=== PATIENT | female | born 1975 | race Caucasian/White ===

== ENCOUNTER 2024-03-15 12:25 | Emergency (ER) | payer OTHER, SELFPAY ==
[2024-03-15 12:30] VITALS: BP 129/79; PULSE 67; RESP 16; TEMP 36.6; O2SAT 99; BMI 25.7
[2024-03-15 13:49] LABS: Basophils % 0.7 %; Eosinophils % 0.5 %; Hematocrit 40.2 % (36-47); Lymphocytes # 1.8 10^3/uL (0.8-4.8); Mean Corpuscular HGB Conc 34.3 g/dL (30-55); Mean Corpuscular Hemoglobin 31.6 pg (27-33); Mean Platelet Volume 10.7 fL (7.4-10.4); Monocytes # 0.2 10^3/uL (0.2-0.9); Neutrophils # 3.88 10^3/uL (1.8-7.7); Neutrophils % 64.6 %; Nucleated Red Blood Cells % 0 %; Platelet Count 188 10^3/cmm (157-399); Red Blood Count 4.37 10^6/uL (3.85-5.65); Red Cell Distribution Width 13.2 % (12.1-15.1)
[2024-03-15 14:13] LABS: HCG, Serum Qual Negative (Negative)
[2024-03-15 14:16] LABS: Alanine Aminotransferase 13 U/L (0-33); Albumin Level 4.4 g/dL (3.5-5.2); Alkaline Phosphatase 80 U/L (35-105); Anion Gap 15.2 (5-19); Aspartate Amino Transferase 21 U/L (0-32); Blood Urea Nitrogen 7 mg/dL (6-20); Calcium 9.7 mg/dL (8.5-10.5); Carbon Dioxide 24 mmol/L (22-29); Chloride 108 mmol/L (98-107); Creatinine Clr Calc Pharmacy 65.2053; Glomerular Filtration Rate 59.2 mL/min (90-130); Glucose 108 mg/dL (65-115); Lipase 24 U/L (13-60); Osmolality Calculated 295 mOsm/kg (285-295); Potassium 4.2 mmol/L (3.5-5.1); Sodium 143 mmol/L (136-145); Total Bilirubin 0.3 mg/dL (0.15-1.2); Total Protein 7.4 g/dL (6.6-8.7)
--- NOTE | 2024-03-15 16:15 | W.ED.ABDPA2 ---
HPI - Abdominal Pain General: Chief Complaint: Abdominal Pain Stated Complaint: urinating issues, unable to have bowel movement Time Seen by Provider: 03/15/24 16:09 History of Present Illness: 49-year-old female who says she has a history of intussusceptions and that every time she plans to have surgery it resolves itself. She says she has been having pain in her belly and every time she eats she gets very bloated. She says that she also is not passing gas but rather area is going back inside her from her rectum. Some upper abdominal pain. She also says she has been having trouble urinating. In she cannot have a bowel movement. No fevers. No chest pain. No shortness of breath. No altered mental status. Review of Systems Narrative: Constitutional symptoms: Negative except as documented in HPI. Skin symptoms: Negative except as documented in HPI. Eye symptoms: Negative except as documented in HPI. ENMT symptoms: Negative except as documented in HPI. Respiratory symptoms: Negative except as documented in HPI. Cardiovascular symptoms: Negative except as documented in HPI. Gastrointestinal symptoms: Negative except as documented in HPI. Genitourinary symptoms: Negative except as documented in HPI. Musculoskeletal symptoms: Negative except as documented in HPI. Neurologic symptoms: Negative except as documented in HPI. Psychiatric symptoms: Negative except as documented in HPI. Endocrine symptoms: Negative except as documented in HPI. Physical Exam Narrative: EXAM NARRATIVE: General: Alert, no acute distress. Skin: Warm, dry. Head: Normocephalic, atraumatic. Neck: Supple, trachea midline. Eye: Extraocular movements are intact. Ears, nose, mouth and throat: mucosa moist. Cardiovascular: Regular, Normal peripheral perfusion. Respiratory: Lungs are clear to auscultation, respirations are non-labored, breath sounds are equal, Symmetrical chest wall expansion. Gastrointestinal: Soft, complains of diffuse abdominal pain, Non distended, Normal bowel sounds. Musculoskeletal: Normal ROM, no deformity. Neurological: Alert and oriented, No focal neurological deficit observed. Psychiatric: Cooperative, appropriate mood & affect. Course Vital Signs: Vital signs: Vital Signs Temperature 97.9 F 03/15/24 12:30 Pulse Rate 67 03/15/24 12:30 Respiratory Rate 16 03/15/24 12:30 Blood Pressure 129/79 03/15/24 12:30 Pulse Oximetry 99 03/15/24 12:30 Oxygen Delivery Me thod Room Air 03/15/24 12:30 MDM - Abdominal Pain Medical Decision Making Medical decision making: Differential diagnosis including but not limited to and based on the above HPI, review of systems and physical exam: Patient reports this might be nociception. CT scan was ordered. Rule out bowel obstruction or constipation. Another pathology such as diverticulitis. Also urine was ordered. Orders placed to evaluate differential diagnosis based on the above differential, HPI and physical exam Lab Review: Laboratory results were reviewed and interpreted by myself the emergency room physician. White count is 6. Hemoglobin 13.8. BUN and creatinine are 7 and 1.0. Urinalysis is negative. CT of the abdomen pelvis with contrast: Listed below is the radiology report. 1. Prominent fluid in the small bowel without dilation may reflect an enteritis. 2. Surgical suture line seen in the region of the distal sigmoid colon/rectum without surrounding inflammatory changes. A rounded 2.7 cm fluid containing area is seen in the area of the surgical suture line in the pelvis is seen which may reflect fluid in the bowel in this area, a CT with enteric contrast could further evaluate this. 3. Cholecystectomy. 4. Left kidney chronic atrophy. 5. Right ovary 6.1 cm cyst with a somewhat thickened internal septation, consider correlation with ultrasound. 6. Small umbilical hernia containing omentum without bowel. I reviewed the patient's medical record. Reexamination: Patient has no abdominal distention and no abdominal pain at this time. She says that if she does eat something she will become all distended. I recommend that she follow with her PCP and a GI doctor as soon as possible. Assessment and plan: -Caroline Friedman in the emergency room. - Discharged home - Discussed findings and plan with patient. Answered any questions. - All laboratory values were reviewed and interpreted personally by myself, the ER physician - All imaging was reviewed and interpreted personally by myself, the ER physician. - Evaluation and treatment of this problem were appropriate in the emergency setting Lab Data 03/15/24 13:39 03/15/24 13:39 Labs/Radiology: Radiology Impressions Abdomen/Pelvis CT 03/15/24 16:16 IMPRESSION: 1. Prominent fluid in the small bowel without dilation may reflect an enteritis. 2. Surgical suture line seen in the region of the distal sigmoid colon/rectum without surrounding inflammatory changes. A rounded 2.7 cm fluid containing area is seen in the area of the surgical suture line in the pelvis is seen which may reflect fluid in the bowel in this area, a CT with enteric contrast could further evaluate this. 3. Cholecystectomy. 4. Left kidney chronic atrophy. 5. Right ovary 6.1 cm cyst with a somewhat thickened internal septation, consider correlation with ultrasound. 6. Small umbilical hernia containing omentum without bowel. Laboratory Results WBC 6.00 10^3/uL (3.29-11.43) 03/15/24 13:39 RBC 4.37 10^6/uL (3.85-5.65) 03/15/24 13:39 Hgb 13.80 g/dL (11.27-16.99) 03/15/24 13:39 Hct 40.2 % (36-47) 03/15/24 13:39 MCV 92.0 fl (85-98) 03/15/24 13:39 MCH 31.6 pg (27-33) 03/15/24 13:39 MCHC 34.3 g/dL (30-55) 03/15/24 13:39 RDW 13.2 % (12.1-15.1) 03/15/24 13:39 Plt Count 188 10^3/cmm (157-399) 03/15/24 13:39 MPV 10.7 fL (7.4-10.4) H 03/15/24 13:39 Neut % (Auto) 64.6 % 03/15/24 13:39 Lymph % (Auto) 30.0 % 03/15/24 13:39 [place] % (Auto) 4.0 % 03/15/24 13:39 Eos % (Auto) 0.5 % 03/15/24 13:39 Baso % (Auto) 0.7 % 03/15/24 13:39 Neut # (Auto) 3.88 10^3/uL (1.8-7.7) 03/15/24 13:39 Lymph # (Auto) 1.8 10^3/uL (0.8-4.8) 03/15/24 13:39 [place] # (Auto) 0.2 10^3/uL (0.2-0.9) 03/15/24 13:39 Eos # (Auto) 0.0 10^3/uL (0.0-0.8) 03/15/24 13:39 Baso # (Auto) 0.0 10^3/uL (0.0-0.1) 03/15/24 13:39 Nucleated RBC % (auto) 0 % 03/15/24 13:39 Nucleated RBCs # 0.0 /100WBC 03/15/24 13:39 Sodium 143 mmol/L (136-145) 03/15/24 13:39 Potassium 4.2 mmol/L (3.5-5.1) 03/15/24 13:39 Chloride 108 mmol/L (98-107) H 03/15/24 13:39 Carbon Dioxide 24 mmol/L (22-29) 03/15/24 13:39 Anion Gap 15.2 (5-19) 03/15/24 13:39 BUN 7 mg/dL (6-20) 03/15/24 13:39 Creatinine 1.0 mg/dL (0.5-0.9) H 03/15/24 13:39 GFR Calculation 59.2 mL/min (90-130) L 03/15/24 13:39 Glucose 108 mg/dL (65-115) 03/15/24 13:39 Calculated Osmolality 295 mOsm/kg (285-295) 03/15/24 13:39 Calcium 9.7 mg/dL (8.5-10.5) 03/15/24 13:39 Total Bilirubin 0.3 mg/dL (0.15-1.2) 03/15/24 13:39 AST 21 U/L (0-32) 03/15/24 13:39 ALT 13 U/L (0-33) 03/15/24 13:39 Alkaline Phosphatase 80 U/L (35-105) 03/15/24 13:39 Total Protein 7.4 g/dL (6.6-8.7) 03/15/24 13:39 Albumin 4.4 g/dL (3.5-5.2) 03/15/24 13:39 Globulin 3.0 g/dL (1.3-4.6) 03/15/24 13:39 Lipase 24 U/L (13-60) 03/15/24 13:39 HCG, Qual Negative (Negative) 03/15/24 13:39 Urine Color Straw (Yellow) 03/15/24 16:13 Urine Appearance Clear (CLEAR) 03/15/24 16:13 Urine pH 7 (5-7) 03/15/24 16:13 Ur Specific [place] 1.000 (1.005-1.030) L 03/15/24 16:13 Urine Protein Neg (Negative) 03/15/24 16:13 Urine Glucose (UA) Norm (Normal) 03/15/24 16:13 Urine Ketones Negative (Negative) 03/15/24 16:13 Urine Blood Neg (Negative) 03/15/24 16:13 Urine Nitrate Negative (Negative) 03/15/24 16:13 Urine Bilirubin Neg (Negative) 03/15/24 16:13 Urine Urobilinogen Neg mg/dL (Negative) 03/15/24 16:13 Ur Leukocyte Esterase Negative (Negative) 03/15/24 16:13 All radiology interpretation(s) finalized by discharge Discharge Plan Discharge Patient Disposition: Home Clinical Impression: Abdominal pain Condition: Stable Prescriptions: New hydrocodone-acetaminophen 5-325 mg tablet 1 tab PO Q6H PRN (Reason: pain) Qty: 20 0RF ondansetron 8 mg tablet,disintegrating 8 mg PO .q6 PRN (Reason: nausea and vomiting) Qty: 14 0RF Miralax 17 gram/dose powder 17 g PO DAILY Qty: 510 0RF Rx Instructions: Take 1 scoop daily while taking pain medications. Discharge Orders: Discharge ED (Routine); Ordered 03/15/24 Ordered By: Teressa Kellogg Patient Instructions: Abdominal Pain (ED), Opioid Safety, Pain Management Activity Restrictions/Additional Instructions: You have been screened and evaluated and felt safe for discharge. Health conditions do change or evolve sometimes and as such it is important that you follow up with your Primary Doctor to be re checked, 3-5 days is a general good time frame for follow up. You are always welcome to return to the ED for re assessment if your symptoms are worsening or you have new concerns Coding Level of Care Code ED Curriculum Assistant for Miguel Shanks
--- NOTE | 2024-03-15 16:16 | CTR_ITS ---
PROCEDURE INFORMATION: Exam: CT Abdomen And Pelvis With Contrast Exam date and time: 03/15/2024 4:47 PM Age: 49 years old Clinical indication: Abdominal pain; Generalized; Prior surgery; Surgery date: 6+ months; Surgery type: Intussusception, fistula, bowl dissection, gb, bladder/vaginal prolapse repair TECHNIQUE: Imaging protocol: Computed tomography of the abdomen and pelvis with contrast. Radiation optimization: All CT scans at this facility use at least one of these dose optimization techniques: automated exposure control; mA and/or kV adjustment per patient size (includes targeted exams where dose is matched to clinical indication); or iterative reconstruction. Contrast material: OMNI 350; Contrast volume: 100 ml; Contrast route: INTRAVENOUS (IV); COMPARISON: No relevant prior studies available. RADIATION DOSE METRICS: Total DLP (mGy-cm): 474.32 FINDINGS: Liver: Normal. No mass. Gallbladder and bile ducts: Cholecystectomy. Pancreas: Normal. No ductal dilation. Spleen: Normal. No splenomegaly. Adrenal glands: Normal. No mass. Kidneys and ureters: Left kidney chronic atrophy. Stomach and bowel: Prominent fluid in the small bowel without dilation may reflect an enteritis. Surgical suture line seen in the region of the distal sigmoid colon/rectum without surrounding inflammatory changes. A rounded 2.7 cm fluid containing area is seen in the area of the surgical suture line in the pelvis is seen which may reflect fluid in the bowel in this area, a CT with enteric contrast could further evaluate this. Appendix: No evidence of appendicitis. Intraperitoneal space: Unremarkable. No free air. No significant fluid collection. Vasculature: Unremarkable. No abdominal aortic aneurysm. Lymph nodes: Unremarkable. No enlarged lymph nodes. Urinary bladder: Unremarkable as visualized. Reproductive: Right ovary 6.1 cm cyst with a somewhat thickened internal septation, consider correlation with ultrasound. Bones/joints: Unremarkable. No acute fracture. Soft tissues: Small umbilical hernia containing omentum without bowel. CT/CT abdomen pelvis w con* [id number] IMPRESSION: 1. Prominent fluid in the small bowel without dilation may reflect an enteritis. 2. Surgical suture line seen in the region of the distal sigmoid colon/rectum without surrounding inflammatory changes. A rounded 2.7 cm fluid containing area is seen in the area of the surgical suture line in the pelvis is seen which may reflect fluid in the bowel in this area, a CT with enteric contrast could further evaluate this. 3. Cholecystectomy. 4. Left kidney chronic atrophy. 5. Right ovary 6.1 cm cyst with a somewhat thickened internal septation, consider correlation with ultrasound. 6. Small umbilical hernia containing omentum without bowel.
[2024-03-15 16:30] LABS: Add Urine Microscopic? NO; Charge for UA Resulting for Rev
[2024-03-15 16:44] LABS: Bilirubin Urine Neg (Negative); Blood Urine Neg (Negative); Glucose Urine UA Norm (Normal); Ketones Urine Negative (Negative); Leukocyte Esterase Urine Negative (Negative); Nitrate Urine Negative (Negative); Protein Urine Neg (Negative); Urine Appearance Clear (CLEAR); Urine Color Straw (Yellow); Urobilinogen Urine Neg (Negative); pH Urine 7 (5-7)
[2024-03-15] MEDS: iohexol 350 mg/mL 500 mL Btl (per mL) IV (16:48)
[2024-03-15 18:27] VITALS: BP 134/82; PULSE 72; RESP 18; TEMP 36.6; O2SAT 98
== END 2024-03-15 18:28 | disposition home or self-care (01) ==
PROVIDERS: Physician Assistant; Emergency Provider Emergency Medicine
DX: R10.10 Upper abdominal pain, unspecified (principal)
CPT/HCPCS: 36415; 74177; 80053; 81003; 83690; 84703; 85025; 99285; Q9967

== ENCOUNTER 2024-07-11 09:34 | Outpatient (CLI) | payer OTHER, SELFPAY ==
--- NOTE | 2024-07-11 09:36 | CT_ITS ---
WS: [id number] CT NECK TECHNIQUE: Contrast-enhanced CT of the neck with coronal and sagittal reformatted images. CLINICAL INFORMATION: DYSPHAGIA COMPARISON: None. DLP: 234.[address] scans at [facility] use at least one of these dose optimization techniques: automated e xposure control; mA and/or kV adjustment per patient size (includes targeted exams where dose is matc hed to clinical indication); or iterative reconstruction. FINDINGS: Paranasal sinuses and mastoid air cells are well aerated. Tiny retention cyst LEFT maxillary sinus. N ormal posterior nasopharynx. Normal parapharyngeal fat. Dental artifact degrades some images. Parotid glands are normal. Normal submandibular glands. No evidence of supraglottic or glottic mass. Normal subglottic airway. Atrophic thyroid gland for a patient this age. Lung apices are well aerated. Straightening of the normal cervical lordosis. Mild disc osteophyte complex at C6-7. No cervical lymp hadenopathy. CT/CT neck w con* [id number] IMPRESSION: 1. No evidence of supraglottic or glottic mass. 2. Normal salivary glands. 3. No cervical lymphadenopathy. 4. Somewhat atrophic thyroid gland for a patient this age. Recommend correlati on with thyroid function studies.
--- NOTE | 2024-07-11 09:36 | FL_ITS ---
WS: [id number] Exam: FL barium swallow modifd [id number] Date/Time of Exam: 07/11/2024 10:06 AM Reason For Exam: Other dysphagia Fluoroscopy time: 1min [id number] minutes # of spot films: 0 Modified barium swallow test is performed in conjunction with the speech therapy service. The patient tolerated all consistencies of barium mixture foodstuffs without aspiration or penetratio n. The patient swallowed a barium tablet without difficulty. FL/FL barium swallow modifd [id number] IMPRESSION: 1. Normal modified barium swallow study. A separate report and recommendations will follow from the speech therapy servi ce.
[2024-07-11] MEDS: iohexol 350 mg/mL 500 mL Btl (per mL) IV (10:23)
== END 2024-07-11 09:35 | disposition home or self-care (01) ==
LOC: RAD 09:35
PROVIDERS: Absent Provider Family Medicine; PCP Nurse Practitioner Family; Visit Provider Specialist
DX: R13.10 Dysphagia, unspecified (principal); E03.4 Atrophy of thyroid (acquired)
CPT/HCPCS: 70491; 74230; 92611; Q9967

== ENCOUNTER → 2024-10-23 13:26 | Outpatient (BNVA) | payer MEDICARE, OTHER, SELFPAY | PROVIDERS: PCP Nurse Practitioner Family; Visit Provider Obstetrics & Gynecology | DX: N83.291 Other ovarian cyst, right side (principal); R10.2 Pelvic and perineal pain | CPT/HCPCS: 76830 ==

== ENCOUNTER → 2025-03-03 12:27 | Outpatient (BNVA) | payer MEDICARE, OTHER, SELFPAY | PROVIDERS: PCP Nurse Practitioner Family; Visit Provider Obstetrics & Gynecology | DX: N83.202 Unspecified ovarian cyst, left side (principal); N83.291 Other ovarian cyst, right side | CPT/HCPCS: 76830 ==